=== PATIENT | female | born 1970 | race Caucasian/White ===

== ENCOUNTER 2017-06-27 10:24 | Emergency (ER) | payer OTHER ==
[2017-06-27 10:25] VITALS: BMI 57.2
[2017-06-27 10:34] VITALS: TEMP 97.8
[2017-06-27 11:15] LABS: RBC URINE 1 /hpf (0-3); URINE BACTERIA RARE (<OCC); URINE BILIRUBIN NEGATIVE (NEGATIVE); URINE BLOOD NEGATIVE (NEGATIVE); URINE COLOR Yellow (YELLOW); URINE GLUCOSE (UA) NORMAL (Normal); URINE KETONE NEGATIVE (NEGATIVE); URINE LEUKOCYTE ESTERASE TRACE Leu/uL (Negative); URINE PROTEIN NEGATIVE (NEGATIVE); URINE UROBILINOGEN NORMAL mg/dL (0.2-1.0); WBC URINE 13 /hpf (0-5)
--- NOTE | 2017-06-27 11:17 | C.PDOC ---
History Of Present Illness Jose A is a 47 y/o female who presents to the ED complaining of dysuria and pelvic pain for 2 weeks. Reports hematuria since yesterday. Patient denies back pain, fever, and vaginal discharge. She was seen in clinic 2 weeks ago, started on antibiotics and finished the course, but symptoms persist. 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 History/Exam Limitations: no limitations Onset/Duration Of Symptoms: Days (x 2 weeks) Current Symptoms Are (Timing): Still Present Past Medical History Reviewed: Historical Data, Nursing Documentation, Vital Signs Vital Signs: Last Vital Signs Temp 97.8 F 06/27/17 10:32 Pulse 84 06/27/17 13:20 Resp 16 06/27/17 13:20 BP 132/81 06/27/17 13:20 Pulse Ox 98 06/27/17 13:20 - Medical History PMH: HTN, Kidney Stones, Migraine, Chronic Kidney Disease - [facility] Procedures INFLUENZA VACCINATION (08/28/14) OTH UNILAT SALPINGO-OOPHORECTOMY (05/03/15) OTHER AND UNSPECIFIED TOTAL ABDOMINAL HYSTERECTOMY (05/03/15) VACCINATION NEC (08/28/14) Family History: States: No Known Family Hx - Social History Hx Tobacco Use: No Hx Alcohol Use: No Hx Substance Use: No - Immunization History Hx Tetanus Toxoid Vaccination: No Hx Influenza Vaccination: No Hx Pneumococcal Vaccination: No Review Of Systems Except As Marked, All Systems Reviewed And Found Negative. Constitutional: Negative for: Fever Genitourinary: Positive for: Dysuria, Frequency, Hematuria (yesterday). Negative for: Vaginal Discharge Musculoskeletal: Negative for: Back Pain Physical Exam - Physical Exam Appears: Well, Non-toxic, No Acute Distress Skin: Normal Color, Warm, Dry Head: Atraumatic, Normacephalic Eye(s): bilateral: Normal Inspection, EOMI Nose: Normal Oral Mucosa: Moist Neck: Normal ROM, Supple Chest: Symmetrical Cardiovascular: Rhythm Regular, No Murmur Respiratory: Normal Breath Sounds, No Accessory Muscle Use Gastrointestinal/Abdominal: Soft, Tenderness (suprapubic tenderness on palpation ) Back: Normal Inspection, No Vertebral Tenderness Pelvic: Normal External Exam, Vaginal Discharge (White discharge), No Cervical Motion Tenderness, Other ((+) foul odor; Park Tech chaperoned) Extremity: Normal ROM, No Pedal Edema, Capillary Refill (< 2 sec), No Deformity Neurological/Psych: Oriented x3, Normal Speech, Normal Cognition Gait: Steady ED Course And Treatment O2 Sat by Pulse Oximetry: 96 (RA) Pulse Ox Interpretation: Normal - CT Scan/US US Pelvis/Transvag Other Rad Studies (CT/US): Read By Radiologist, Radiology Report Reviewed CT/US Interpretation: Impression: Status post hysterectomy and right oophorectomy. The left ovary measures approximately 3.1 x 2.3 x 2.9 cm and contains 1.8 x 1.5 x 1.9 cm hypoechoic focus favored to reflect cyst. Progress Note: Sensitivity evaluated from [facility] on 06/15/17, sensitive to Cipro. Ordered Pelvic/Transvaginal US. Re-evaluation. Patient feels better. Discussed results and plan with patient who expresses understanding. All questions answered and there is agreement with the plan to discharge home with Rx for Flagyl and Naprosyn. Patient stable for discharge. Will follow up with PMD in 2-5 days. Return if symptoms persist or worsen. Medical Decision Making Medical Decision Making: Time: 10:37 Initial Plan: --Urine culture --Urinalysis --Qualitative HCG Urine Time: 12:18 --Pending US Pelvis/Transvag Disposition Counseled Patient/Family Regarding: Studies Performed, Diagnosis, Need For Followup, Rx Given - Disposition Referrals: [facility] at [facility] [Outside] Disposition: HOME/ ROUTINE Disposition Time: 13:08 Condition: STABLE Additional Instructions: Vaya a barton mdico o la clnica en 2-5 hernández sin falta, para mas evaluacin. [place] los medicamentos jason indicado. Volver a la lola de emergencia en cualquier momento si los sntomas persisten o empeoran. 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 - Scribe Statement The provider has reviewed the documentation as recorded by the Scribe Masha Purcell All medical record entries made by the Adamibe were at my direction and personally dictated by me. I have reviewed the chart and agree that the record accurately reflects my personal performance of the history, physical exam, medical decision making, and the department course for this patient. I have also personally directed, reviewed, and agree with the discharge instructions and disposition.
--- NOTE | 2017-06-27 13:02 | US ---
Indication: History of hysterectomy, left-sided pain Comparison: Pelvis ultrasound performed 01/11/15 Technique: Real-time transabdominal pelvic ultrasound was performed. In addition a transvaginal pelvic ultrasound was necessary to better depict pelvic anatomy. Findings: The patient is by history status post hysterectomy. The right ovary is not seen and by history the patient has undergone right sided oophorectomy. The left ovary measures approximately 3.1 x 2.3 x 2.9 cm and contains 1.8 x 1.5 x 1.9 cm hypoechoic focus favored to reflect cyst. Blood flow is demonstrated to the left ovary. No mass or free fluid is identified. Impression: Status post hysterectomy and right oophorectomy. The left ovary measures approximately 3.1 x 2.3 x 2.9 cm and contains 1.8 x 1.5 x 1.9 cm hypoechoic focus favored to reflect cyst.
[2017-06-27 13:20] VITALS: BP 132/81; PULSE 84; RESP 16
[2017-06-27 17:15] VITALS: O2SAT 96
== END 2017-06-27 13:20 | disposition home or self-care (01) ==
LOC: C.ER 10:24
DX: N83.209 Unspecified ovarian cyst, unspecified side (principal); N76.0 Acute vaginitis

== ENCOUNTER 2017-11-29 19:58 | Emergency (ER) | payer SELFPAY ==
[2017-11-29 19:58] VITALS: BMI 57.2
[2017-11-29 21:11] VITALS: RESP 20
[2017-11-29] MEDS ORDERED: Albuterol-Ipratrop 3 mg / 0.5 (3 ml) UD INH STA (21:52)
[2017-11-29] MEDS ORDERED: Albuterol-Ipratrop 3 mg / 0.5 (3 ml) UD ONE (22:01)
--- NOTE | 2017-11-29 22:03 | C.PDOC ---
History Of Present Illness 47-year-old female, presents to the emergency department with complaints of subjective fever and persistent non-productive cough x2 days. Patient has a Hx of asthma but is not getting any relief at home, prompting visit. Denies vomiting, diarrhea, chest pain, back pain, dizziness, or any other associated symptoms. No other complaints at this time. Time Seen by Provider: 11/29/17 21:12 Chief Complaint (Nursing): Cough, Cold, Congestion History Per: Patient History/Exam Limitations: no limitations Onset/Duration Of Symptoms: Days Current Symptoms Are (Timing): Still Present Past Medical History Reviewed: Historical Data, Nursing Documentation, Vital Signs Vital Signs: Last Vital Signs Temp 98.6 F 11/29/17 21:08 Pulse 82 11/29/17 21:08 Resp 20 11/29/17 21:08 BP 112/80 11/29/17 21:08 Pulse Ox 97 11/29/17 22:46 - Medical History PMH: HTN, Kidney Stones, Migraine, Chronic Kidney Disease - [facility] Procedures INFLUENZA VACCINATION (08/28/14) OTH UNILAT SALPINGO-OOPHORECTOMY (05/03/15) OTHER AND UNSPECIFIED TOTAL ABDOMINAL HYSTERECTOMY (05/03/15) VACCINATION NEC (08/28/14) Family History: States: No Known Family Hx - Social History Hx Tobacco Use: No Hx Alcohol Use: No Hx Substance Use: No - Immunization History Hx Tetanus Toxoid Vaccination: No Hx Influenza Vaccination: No Hx Pneumococcal Vaccination: No Review Of Systems Constitutional: Positive for: Fever Cardiovascular: Negative for: Chest Pain, Palpitations Respiratory: Positive for: Cough. Negative for: Shortness of Breath Gastrointestinal: Negative for: Nausea, Vomiting Musculoskeletal: Negative for: Back Pain Neurological: Negative for: Weakness, Numbness, Headache Physical Exam - Physical Exam Appears: Non-toxic, No Acute Distress Skin: Warm, Dry, No Rash Head: Atraumatic, Normacephalic Eye(s): bilateral: Normal Inspection, PERRL, EOMI Nose: Normal Oral Mucosa: Moist Lips: Normal Appearing Neck: Normal ROM Chest: Symmetrical Cardiovascular: Rhythm Regular, No Murmur Respiratory: Normal Breath Sounds, No Accessory Muscle Use, No Rales, No Rhonchi , No Wheezing, Other (persistent cough) Extremity: Normal ROM Neurological/Psych: Oriented x3, Normal Speech ED Course And Treatment O2 Sat by Pulse Oximetry: 97 (on RA) Pulse Ox Interpretation: Normal - Radiology CXR: Interpreted by Me, Viewed By Me CXR Interpretation: Yes: No Acute Disease Progress Note: Chest X-Ray ordered and reviewed. Patient treated with Duoneb and Claritin. Medical Decision Making Medical Decision Making: On re-exam, the patient reports resolution of symptoms. Lungs are CTA, heart is RRR, Abdomen is soft, non-tender and tolerating PO well. Ambulatory in the ED with steady gait. Follow up with the medical doctor/clinic within 1-2 days without fail. Return if worsened. Disposition - Disposition Referrals: [facility] at [facility] [Outside] Disposition: HOME/ ROUTINE Disposition Time: 22:49 Condition: GOOD Additional Instructions: Follow up with the medical doctor/clinic within 1-2 days without fail. Return if worsened. Prescriptions: Albuterol HFA [Ventolin HFA 90 mcg/actuation (8 g)] 1 puff IH Q6 PRN #60 puff PRN Reason: Shortness Of Breath Loratadine [Claritin] 10 mg PO DAILY #10 tab predniSONE [Prednisone] 20 mg PO BID #10 tab Promethazine/Codeine [Phenergan/Codeine Oral Syrup] 5 ml PO Q8 PRN #50 ml PRN Reason: Cough Instructions: Acute Bronchitis (ED) Forms: [facility] (Greenlandic) Print Language: CYMRAES - Clinical Impression Clinical Impression: Bronchitis - Scribe Statement The provider has reviewed the documentation as recorded by the Scribe (Lalit Shaikh) All medical record entries made by the Scribe were at my direction and personally dictated by me. I have reviewed the chart and agree that the record accurately reflects my personal performance of the history, physical exam, medical decision making, and the department course for this patient. I have also personally directed, reviewed, and agree with the discharge instructions and disposition.
[2017-11-29] MEDS ORDERED: Promethazine/Cod 6.25mg-10mg/5ml Syr UD PO STA (22:44)
[2017-11-29] MEDS ORDERED: Promethazine/Cod 6.25mg-10mg/5ml Syr UD ONE (22:49)
[2017-11-29 23:03] VITALS: BP 120/77; PULSE 88; TEMP 97.6
--- NOTE | 2017-11-30 08:51 | RAD ---
Chest x-ray two views History: Cough fever. Comparison: 08/17/2016 Findings: Mild diffuse increased interstitial lung markings, likely chronic, not significantly changed since the prior study. Enlarged ectatic aorta. Mild cardiomegaly. Degenerative changes in the spine with paravertebral osteophytes. Impression: No significant interval change
--- NOTE | 2017-11-30 23:06 | CARD ---
APPROVED REPORT EKG Measurement Heart [id number] <Conclusion> Normal sinus rhythm Normal ECG
[2017-11-30 23:17] VITALS: O2SAT 97
== END 2017-11-29 23:03 | disposition home or self-care (01) ==
LOC: C.ER 19:58
DX: J40 Bronchitis, not specified as acute or chronic (principal); I10 Essential (primary) hypertension

== ENCOUNTER 2017-12-06 11:41 | Emergency (ER) | payer SELFPAY ==
[2017-12-06 11:56] VITALS: BMI 46.8
[2017-12-06 12:04] VITALS: RESP 18
--- NOTE | 2017-12-06 13:11 | C.PDOC ---
History Of Present Illness 47 yo female come in for re-evaluation of cold symptoms for the last 10 days associated malaise and cough. Pt reports, cough is productive now with greenish sputum. PT admits, was seen here in ED on 11/29/17 received medication without significnat improvement. request abx now. Otherwise, pt denies headache, dizziness, drooling, dysphagia, dyspnea, chest pain, palpitation, wheezing, abd. pain, N/V/D, UTI sx,, back pain. Ambulate to ED, occasional cough noted. Time Seen by Provider: 12/06/17 12:53 Chief Complaint (Nursing): Cough, Cold, Congestion History Per: Patient Onset/Duration Of Symptoms: Gradual Past Medical History Reviewed: Historical Data, Nursing Documentation, Vital Signs Vital Signs: Last Vital Signs Temp 97.7 F 12/06/17 16:21 Pulse 69 12/06/17 16:21 Resp 18 12/06/17 16:21 BP 117/73 12/06/17 16:21 Pulse Ox 96 12/06/17 16:21 - Medical History PMH: HTN, Kidney Stones, Migraine, Chronic Kidney Disease Other PMH: Obese - [facility] Procedures INFLUENZA VACCINATION (08/28/14) OTH UNILAT SALPINGO-OOPHORECTOMY (05/03/15) OTHER AND UNSPECIFIED TOTAL ABDOMINAL HYSTERECTOMY (05/03/15) VACCINATION NEC (08/28/14) Family History: States: No Known Family Hx - Social History Hx Tobacco Use: No Hx Alcohol Use: No Hx Substance Use: No - Immunization History Hx Tetanus Toxoid Vaccination: No Hx Influenza Vaccination: No Hx Pneumococcal Vaccination: No Review Of Systems Except As Marked, All Systems Reviewed And Found Negative. Constitutional: Positive for: Malaise. Negative for: Fever, Chills ENT: Positive for: Nose Discharge, Nose Congestion. Negative for: Throat Swelling Cardiovascular: Negative for: Chest Pain, Palpitations Respiratory: Positive for: Cough, Sputum. Negative for: Shortness of Breath, Wheezing Gastrointestinal: Negative for: Nausea, Vomiting, Abdominal Pain, Diarrhea Genitourinary: Negative for: Dysuria Musculoskeletal: Negative for: Neck Pain Skin: Negative for: Rash Neurological: Negative for: Weakness, Numbness, Altered Mental Status, Headache , Dizziness Physical Exam - Physical Exam Appears: Well, Non-toxic, No Acute Distress, Other (occasional dry cough noted) Skin: Normal Color, Warm, Dry, No Rash Eye(s): bilateral: PERRL Ear(s): Bilateral: Normal Nose: No Flaring, Discharge (B/L clear scant) Oral Mucosa: Moist, No Drooling Tongue: Normal Appearing Lips: Normal Appearing Throat: No Erythema, No Drooling Neck: Trachea Midline, Supple Cardiovascular: Rhythm Regular, No Murmur, No JVD Respiratory: No Decreased Breath Sounds, No Accessory Muscle Use, No Stridor, Wheezing (scattered Right base) Gastrointestinal/Abdominal: Soft, No Tenderness, No Distention, No Guarding Back: No CVA Tenderness Extremity: Normal ROM, No Pedal Edema, No Deformity Neurological/Psych: Oriented x3, Normal Speech ED Course And Treatment - Laboratory Results Result Diagrams: 12/06/17 13:57 12/06/17 16:19 O2 Sat by Pulse Oximetry: 95 Pulse Ox Interpretation: Normal - Other Rad No standard instances X-Ray: Viewed By Me, Read By Radiologist Interpretation: IMPRESSION: Diffuse bilateral interstitial infiltrates with interval progression compared the prior study Progress Note: Pt was OBS in ED for 3 hours and reports moderate improvement in sx. On re-eval, pt is afebrile, hemodynamicaly stable. Non-toxic. [place] PO well in ED. PulseOx 95% RA. ENT: no acute findings. Uvula midline, no edmea. Neck: SUpple, (-) meningeal sign. Lungs: CTA B/L, BS equal B/L. Abd: benign. Back: (-) CVA tenderness. Neurologicaly intact. CXR review (+) PNA. results review and discussed with pt. Pt advised on course of ds, and ref. to F/U with PMD In 2-3 days for re-eval. return to ED at any time if any worsening or new changes. pt v/u and agrees with discharges. Disposition Counseled Patient/Family Regarding: Studies Performed, Diagnosis, Need For Followup, Rx Given - Disposition Referrals: [facility] at [facility] [Outside] Disposition: HOME/ ROUTINE Disposition Time: 15:10 Condition: STABLE Additional Instructions: ENCOURAGE FLUIDS TAKE MEDICATION PRESCRIBED FOLLOW UP WITH PMD IN 2-3 DAYS FOR RE-EVALUATION. RETURN TO ED IF ANY WORSENING OR NEW CHANGES. Prescriptions: Albuterol HFA [Ventolin HFA 90 mcg/actuation (8 g)] 1 puff IH Q6 #1 inhaler Cefdinir [Omnicef] 300 mg PO BID #14 cap Prednisone [Deltasone] 60 mg PO DAILY #9 tablet Promethazine/Codeine [Phenergan/Codeine Oral Syrup] 10 ml PO TID #90 ml Instructions: Pneumonia (ED) Forms: [facility] (Frisian), Work Excuse Print Language: SOLOMON ISLANDER - Clinical Impression Clinical Impression: Pneumonia
[2017-12-06] MEDS ORDERED: Albuterol 0.083% Inhal Sol (2.5 mg/3 mL) UD INH STA (13:30)
--- NOTE | 2017-12-06 13:30 | RAD ---
HISTORY: Cough COMPARISON: Comparison chest 11/29/2017 TECHNIQUE: Chest PA and lateral FINDINGS: LUNGS: . Diffuse bilateral interstitial infiltrates with interval progression compared the prior study PLEURA: No significant pleural effusion identified. No pneumothorax apparent. CARDIOVASCULAR: Cardiomegaly. Aorta is slightly ectatic and uncoiled. OSSEOUS STRUCTURES: No significant abnormalities. VISUALIZED UPPER ABDOMEN: Normal. OTHER FINDINGS: None. IMPRESSION: . Diffuse bilateral interstitial infiltrates with interval progression compared the prior study
[2017-12-06] MEDS ORDERED: Albuterol 0.083% Inhal Sol (2.5 mg/3 mL) UD ONE (13:37)
[2017-12-06] MEDS ORDERED: Sodium Chloride 0.9% 1,000 ML IV ONE (13:39)
[2017-12-06] MEDS ORDERED: Albuterol-Ipratrop 3 mg / 0.5 (3 ml) UD IH STA (13:41)
[2017-12-06 14:06] LABS: BASO # 0.1 K/uL (0.0-0.2); EOS % 0.6 % (0.0-4.0); HEMOGLOBIN 14.1 g/dL (11.0-16.0); LYMPH # 3.6 K/uL (1.0-4.3); LYMPH % 50.5 % (20.0-40.0); MEAN CELL VOLUME 85.3 fL (81.0-99.0); MEAN CORPUSCULAR HEMOGLOBIN 29.1 pg (27.0-31.0); MEAN CORPUSCULAR HGB CONC 34.1 g/dL (33.0-37.0); MEAN PLATELET VOLUME 9.8 fL (7.2-11.7); MONO # 0.5 K/uL (0.0-0.8); MONO % 7.1 % (0.0-10.0); NEUT # 2.9 K/uL (1.8-7.0); NEUT % 40.8 % (50.0-75.0); NRBC % 0.1 % (0.0-2.0); RBC 4.84 Mil/uL (3.80-5.20); RED CELL DISTRIBUTION WIDTH 13.3 % (11.5-14.5); WHITE BLOOD COUNT 7.1 K/uL (4.8-10.8)
[2017-12-06] MEDS ORDERED: Sodium Chloride 0.9% 1,000 ML ONE (14:14)
[2017-12-06] MEDS ORDERED: Albuterol-Ipratrop 3 mg / 0.5 (3 ml) UD ONE (15:20)
[2017-12-06 16:22] VITALS: BP 117/73; PULSE 69; TEMP 97.7
[2017-12-06 16:39] LABS: BLOOD UREA NITROGEN 14 mg/dL (7-17); CALCIUM 8.9 mg/dl (8.6-10.4); GFR AFRICAN-AMERICAN > 60; GFR NON-AFRICAN AMERICAN > 60
[2017-12-07 14:03] VITALS: O2SAT 95
== END 2017-12-06 16:35 | disposition home or self-care (01) ==
LOC: C.ER 11:41
DX: J18.9 Pneumonia, unspecified organism (principal); I12.9 Hypertensive chronic kidney disease with stage 1 through stage 4 chronic kidney disease, or unspecified chronic kidney disease; N18.9 Chronic kidney disease, unspecified
CPT/HCPCS: 71046; 80048; 85025; 87040; 94640; 96361; 96365; 96375; 99284; J0696; J2930; J7040

== ENCOUNTER 2018-03-23 11:19 | Emergency (ER) | payer OTHER ==
[2018-03-23 11:19] VITALS: BMI 49.2
[2018-03-23] MEDS ORDERED: Sodium Chloride 0.9% 1,000 ML IV STA (12:39)
[2018-03-23] MEDS ORDERED: Iohexol 240 (50 ml) PO STA (12:39)
[2018-03-23 13:14] LABS: BASO % 0.4 % (0.0-2.0); EOS # 0.1 K/uL (0.0-0.7); EOS % 1.2 % (0.0-4.0); HEMOGLOBIN 13.8 g/dL (11.0-16.0); LYMPH # 2.9 K/uL (1.0-4.3); LYMPH % 37.8 % (20.0-40.0); MEAN CELL VOLUME 85.3 fL (81.0-99.0); MEAN CORPUSCULAR HEMOGLOBIN 29.1 pg (27.0-31.0); MEAN CORPUSCULAR HGB CONC 34.1 g/dL (33.0-37.0); MEAN PLATELET VOLUME 10.7 fL (7.2-11.7); MONO # 0.4 K/uL (0.0-0.8); MONO % 5.3 % (0.0-10.0); NEUT # 4.2 K/uL (1.8-7.0); NEUT % 55.3 % (50.0-75.0); NRBC % 0.1 % (0.0-2.0); RBC 4.75 Mil/uL (3.80-5.20); WHITE BLOOD COUNT 7.6 K/uL (4.8-10.8)
[2018-03-23 13:16] LABS: SQUAMOUS EPITHIAL 11 /hpf (0-5); URINE BACTERIA RARE (<OCC); URINE BILIRUBIN NEGATIVE (NEGATIVE); URINE BLOOD NEGATIVE (NEGATIVE); URINE CLARITY Hazy (Clear); URINE COLOR Yellow (YELLOW); URINE GLUCOSE (UA) NORMAL (Normal); URINE LEUKOCYTE ESTERASE NEG Leu/uL (Negative); URINE PROTEIN NEGATIVE (NEGATIVE); URINE UROBILINOGEN NORMAL mg/dL (0.2-1.0)
--- NOTE | 2018-03-23 13:18 | C.PDOC ---
History Of Present Illness 47 year old female presents to the emergency department with complaints of epigastric and left upper quadrant pain persisting for the past two weeks. Patient reports that her abdominal pain is associated with nausea, vomiting, and dizziness. Patient states that she was diagnosed with diabetes in January, at which time the doctor suggested that she needed a diet but did not prescribe any medications. Patient states that she has not been following the diet strictly. Time Seen by Provider: 03/23/18 11:47 Chief Complaint (Nursing): Abdominal Pain History Per: Patient History/Exam Limitations: no limitations Onset/Duration Of Symptoms: Other (two weeks) Current Symptoms Are (Timing): Still Present Location Of Pain/Discomfort: Epigastric, LUQ Associated Symptoms: Nausea, Vomiting Past Medical History Reviewed: Historical Data, Nursing Documentation, Vital Signs Vital Signs: Last Vital Signs Temp 97.6 F 03/23/18 14:15 Pulse 53 L 03/23/18 14:15 Resp 18 03/23/18 14:15 BP 93/65 L 03/23/18 14:15 Pulse Ox 96 03/23/18 16:33 - Medical History PMH: HTN, Hypercholesterolemia, Kidney Stones, Migraine, Chronic Kidney Disease Surgical History: No Surg Hx - [facility] Procedures INFLUENZA VACCINATION (08/28/14) OTH UNILAT SALPINGO-OOPHORECTOMY (05/03/15) OTHER AND UNSPECIFIED TOTAL ABDOMINAL HYSTERECTOMY (05/03/15) VACCINATION NEC (08/28/14) Family History: States: No Known Family Hx - Social History Hx Tobacco Use: No Hx Alcohol Use: No Hx Substance Use: No - Immunization History Hx Tetanus Toxoid Vaccination: No Hx Influenza Vaccination: No Hx Pneumococcal Vaccination: No Review Of Systems Except As Marked, All Systems Reviewed And Found Negative. Gastrointestinal: Positive for: Nausea, Vomiting, Abdominal Pain Neurological: Positive for: Dizziness Physical Exam - Physical Exam Appears: Non-toxic, No Acute Distress Skin: Normal Color, Warm Head: Atraumatic, Normacephalic Eye(s): bilateral: Normal Inspection Chest: Symmetrical Cardiovascular: Rhythm Regular Respiratory: Normal Breath Sounds Gastrointestinal/Abdominal: Soft, Tenderness (in the epigastric and LUQ region) Neurological/Psych: Oriented x3, Normal Speech, Normal Cognition ED Course And Treatment - Laboratory Results Result Diagrams: 03/23/18 13:06 03/23/18 13:06 O2 Sat by Pulse Oximetry: 96 (RA) Pulse Ox Interpretation: Normal - CT Scan/US Abdomen/Pelvis Other Rad Studies (CT/US): Read By Radiologist, Radiology Report Reviewed CT/US Interpretation: Accession No. : [id number]. Patient Name / ID : ANTIONETTE BENSON / [id number]. Exam Date : 03/23/2018 15:33:20 ( Approved ). Study Comment : Sex / Age : F / 47Y. Creator : Amanda Squires. Dictator : Ever Maharaj MD. Educational Advisor : Lehr Cutter : Ever Maharaj MD. Approver2 : Report Date : 03/23/2018 15:45:17. My Comment : . PROCEDURE: CT Abdomen and Pelvis with contrast. HISTORY: left sidedabd pain. COMPARISON: 04/16/2017. TECHNIQUE: Contrast dose: 100 mL Visipaque 320. Radiation dose: Total exam DLP = 1175.64 mGy-cm. This CT exam was performed using one or more of the following dose reduction techniques: Automated exposure control, adjustment of the mA and/or kV according to patient size, and/ or use of iterative reconstruction technique. FINDINGS: LOWER THORAX: Unremarkable. LIVER: Normal size and contour. Diffusely diminished attenuation consistent with fatty infiltration. No mass. No biliary dilatation. GALLBLADDER AND BILE DUCTS: Unremarkable. PANCREAS: Unremarkable. No gross lesion or ductal dilatation. SPLEEN: Unremarkable. ADRENALS: Unremarkable. No mass. KIDNEYS AND URETERS: 1.6 cm left mid renal mass measuring -87 Hounsfield units. This is homogeneously low in attenuation. 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 Cannot rule out focal cortical scar. No change from previous CT. No other renal mass. No renal calculus or hydronephrosis. VASCULATURE: No evidence of abdominal aortic aneurysm. BOWEL: Unremarkable. No obstruction. No gross mural thickening. APPENDIX: Normal appendix. PERITONEUM: Unremarkable. No free fluid. No free air. LYMPH NODES: Unremarkable. No enlarged lymph nodes. BLADDER: Poorly distended. Grossly unremarkable. REPRODUCTIVE: Status post hysterectomy. BONES: No acute fracture. OTHER FINDINGS: None. IMPRESSION: No acute abnormality. Fatty infiltration of the liver. 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 Status post hysterectomy. No additional abnormality. Progress Note: Plan: CT Abdomen and Pelvis. CMP. Lipase. CBC,. Protonix 40mg IVP. NaCl IV Fluids. Zofran 4mg IVP. Urinalysis. Labs were reviwed and w/o acute abnormalities. On re-evaluation patient feels better, tolerates poa nd is stable to be d/c home with Clinic f/u. Disposition - Disposition Referrals: [facility] at [facility] [Outside] Disposition: HOME/ ROUTINE Disposition Time: 16:31 Condition: STABLE Additional Instructions: Follow up in Clinic within 1-2 days. Return to ED if feel worse. 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 - Scribe Statement The provider has reviewed the documentation as recorded by the Scribe (Blane Weeks) All medical record entries made by the Scribe were at my direction and personally dictated by me. I have reviewed the chart and agree that the record accurately reflects my personal performance of the history, physical exam, medical decision making, and the department course for this patient. I have also personally directed, reviewed, and agree with the discharge instructions and disposition.
[2018-03-23] MEDS ORDERED: Iohexol 240 (50 ml) ONE (13:28)
[2018-03-23 13:29] LABS: ALB/GLOB RATIO 1.1 (1.0-2.1); ALT/SGPT 44 U/L (9-52); AST/SGOT 37 U/L (14-36); BLOOD UREA NITROGEN 12 mg/dL (7-17); CALCIUM 9.4 mg/dl (8.6-10.4); GFR AFRICAN-AMERICAN > 60; GFR NON-AFRICAN AMERICAN > 60; LIPASE 66 U/L (23-300)
[2018-03-23] MEDS ORDERED: Iodixanol 320 MG/ML 100 ML BOTTLE IV ONE (15:16)
--- NOTE | 2018-03-23 16:12 | CT ---
PROCEDURE: CT Abdomen and Pelvis with contrast HISTORY: left sidedabd pain COMPARISON: 04/16/2017 TECHNIQUE: Contrast dose: 100 mL Visipaque 320 Radiation dose: Total exam DLP = 1175.64 mGy-cm. This CT exam was performed using one or more of the following dose reduction techniques: Automated exposure control, adjustment of the mA and/or kV according to patient size, and/or use of iterative reconstruction technique. FINDINGS: LOWER THORAX: Unremarkable. LIVER: Normal size and contour. Diffusely diminished attenuation consistent with fatty infiltration. No mass. No biliary dilatation. GALLBLADDER AND BILE DUCTS: Unremarkable. PANCREAS: Unremarkable. No gross lesion or ductal dilatation. SPLEEN: Unremarkable. ADRENALS: Unremarkable. No mass. KIDNEYS AND URETERS: 1.6 cm left mid renal mass measuring -87 Hounsfield units. This is homogeneously low in attenuation. 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 Cannot rule out focal cortical scar. No change from previous CT. No other renal mass. No renal calculus or hydronephrosis. VASCULATURE: No evidence of abdominal aortic aneurysm. BOWEL: Unremarkable. No obstruction. No gross mural thickening. APPENDIX: Normal appendix. PERITONEUM: Unremarkable. No free fluid. No free air. LYMPH NODES: Unremarkable. No enlarged lymph nodes. BLADDER: Poorly distended. Grossly unremarkable. REPRODUCTIVE: Status post hysterectomy BONES: No acute fracture. OTHER FINDINGS: None. IMPRESSION: No acute abnormality. Fatty infiltration of the liver. 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 Status post hysterectomy. No additional abnormality.
[2018-03-23 16:54] VITALS: BP 130/81; PULSE 56; RESP 16; TEMP 97.3
[2018-03-23 16:56] VITALS: O2SAT 96
== END 2018-03-23 16:55 | disposition home or self-care (01) ==
LOC: C.ER 11:19
DX: R10.9 Unspecified abdominal pain (principal); I12.9 Hypertensive chronic kidney disease with stage 1 through stage 4 chronic kidney disease, or unspecified chronic kidney disease; E11.22 Type 2 diabetes mellitus with diabetic chronic kidney disease; N18.9 Chronic kidney disease, unspecified; E78.00 Pure hypercholesterolemia, unspecified
CPT/HCPCS: 74177; 80053; 81001; 82948; 83690; 85025; 96361; 96374; 96375; 99285; C9113; J2405; J7040; Q9966; Q9967